=== PATIENT | female | born 1995 | race Caucasian/White ===

== ENCOUNTER 2019-08-11 18:55 | Emergency (ER) | payer OTHER ==
[~2019-08-11] VITALS: Ht 157.5 cm; Wt 104.3 kg
[2019-08-11] MEDS ORDERED: PRENATABS FA T1 EACH (19:12)
== END 2019-08-11 21:32 | disposition home or self-care (01) ==
LOC: ER 18:55
DX: O00.80 Other ectopic pregnancy without intrauterine pregnancy (principal); O46.8X1 Other antepartum hemorrhage, first trimester; O26.851 Spotting complicating pregnancy, first trimester